=== PATIENT | female | born 1980 | race Caucasian/White ===

== ENCOUNTER 2022-09-26 10:40 | Outpatient (CLI) | payer BC | END 2022-09-26 10:41 | disposition home or self-care (01) | LOC: CSHMAMMO 10:40 | PROVIDERS: ATTEND Nurse Practitioner Family | DX: Z12.31 Encounter for screening mammogram for malignant neoplasm of breast (principal); N64.89 Other specified disorders of breast | CPT/HCPCS: 77063; 77067 ==

== ENCOUNTER 2025-06-01 11:54 | Emergency (ER) | payer BC ==
[2025-06-01 13:44] LABS: #Basophils 0.04 10x3/uL (0.0-0.2); #Eosinophils 0.14 10x3/uL (0.0-0.5); #Monocytes 0.58 10x3/uL (0.0-1.1); #Neutrophils 4.09 10x3/uL (1.5-8.4); %Basophils 0.6 % (0.0-2.0); %Eosinophils 2.0 % (0.0-6.0); %Lymphocytes 30.5 % (18.0-47.0); %Monocytes 8.3 % (0.0-10.0); %Neutrophils 58.3 % (40.0-75.0); Hematocrit 39.1 % (34.9-44.5); Hemoglobin 13.1 g/dL (12.0-15.5); Mean Corpuscular Hemoglobin 28.5 pg (27.0-33.0); Mean Corpuscular Volume 85.2 fL (81.6-98.3); Platelet Count 291 10x3/uL (150-450); Red Blood Cell (RBC) Count 4.59 10x6/uL (3.90-5.03); White Blood Cell (WBC) Count 7.01 10x3/uL (3.5-10.5)
[2025-06-01 13:55] LABS: BHCG - Serum Negative (NEGATIVE); Pregs Control Background? CLEAR/WHITE (CLR/WHITE); Pregs Control Bar Appear? YES (CONTROL BAR)
[2025-06-01 14:03] LABS: ALT (SGPT) 23 U/L (Less than 34); AST (SGOT) 25 U/L (11-34); Albumin 4.2 g/dL (3.1-4.5); Alkaline Phosphatase 68 U/L (40-110); Anion Gap 15 mmol/L (10-20); BUN (Urea Nitrogen) 17 mg/dL (7.0-18.7); Bilirubin, Total 0.2 mg/dL (0.3-1.2); Calc. Creatinine Clearance 0 mL/min (70-130); Calcium 9.3 mg/dL (7.8-10.44); Carbon Dioxide 27 mmol/L (22-29); Chloride 100 mmol/L (98-107); Globulin 3.0 g/dL (2.4-3.5); Glucose 71 mg/dL (70-105); Magnesium 2.1 mg/dL (1.6-2.6); Potassium 3.7 mmol/L (3.5-5.1); Sodium 138 mmol/L (136-145)
== END 2025-06-01 15:26 | disposition home or self-care (01) ==
LOC: CSHERS 11:54
DX: I95.1 Orthostatic hypotension (principal); R00.2 Palpitations; R29.700 NIHSS score 0
CPT/HCPCS: 36415; 80053; 83735; 84443; 84703; 85025; 93005; 99285